=== PATIENT | female | born 1960 | race Caucasian/White ===

== ENCOUNTER 2020-04-11 10:45 | Outpatient (REF) | payer BC, SELFPAY ==
[2020-04-11 11:21] LABS: MANUAL DIFF FLAG NO
[2020-04-11 11:26] LABS: Basophils Percent Auto 0.5 % (0-2); Eosinophils Absolute Auto 0.1 X10*3/uL (0.0-0.4); Eosinophils Percent Auto 2.5 % (0-4); Hematocrit 39.7 % (37-47); Hemoglobin 13.2 g/dl (12.0-16.0); Imm Gran Abs Auto 0.02 X10*3/uL (0.00-0.03); Imm Gran Pct Auto 0.4 % (0.0-0.4); Lymphocytes Absolute Auto 1.6 X10*3/uL (1.2-4.9); Lymphocytes Percent Auto 29.2 % (20-40); Mean Corpuscular HGB Conc 33.2 g/dl (31.0-35.0); Mean Corpuscular Hemoglobin 26.2 pg (27.0-33.0); Mean Corpuscular Volume 78.9 fL (80-98); Mean Platelet Volume 9.6 fL (9.4-12.3); Monocytes Absolute Auto 0.2 X10*3/uL (0.1-1.2); Monocytes Percent Auto 4.2 % (2-11); Neutrophils Absolute Auto 3.5 X10*3/uL (2.0-8.3); Neutrophils Percent Auto 63.2 % (45-73); Platelet Count 270 X10*3/uL (160-400); Red Blood Count 5.03 X10*6/uL (4.20-5.50); Red Cell Distribution Width 13.3 % (11.0-16.0); White Blood Count 5.5 X10*3/uL (4.8-10.8)
[2020-04-11 11:36] LABS: Prothrombin Time 11.7 SEC (10.8-13.0)
[2020-04-11 11:57] LABS: Alanine Aminotransferase 82 U/L (0-31); Albumin Level 4.3 g/dL (3.5-5.0); Alkaline Phosphatase 202 U/L (39-117); Aspartate Amino Transferase 39 U/L (5-31); Bilirubin Direct 0.2 mg/dL (0.0-0.5); Bilirubin Total 0.6 mg/dL (0.0-1.0); Gamma Glutamyl Transpeptidase 302 U/L (7-33); Total Protein 6.8 g/dL (6.5-8.0)
[2020-04-14 13:08] LABS: Mitochondrial Antibodies NEGATIVE (NEGATIVE)
[2020-04-15 12:52] LABS: Liver Kidney Microsomal Ab <=20.0 U (<=20.0)
[2020-04-15 23:37] LABS: FIB-ALT 83 U/L (6-29); FIB-Alpha-2-Macroglobulin 176 mg/dL (106-279); FIB-Apolipoprotein A1 214 mg/dL (101-198); FIB-GGT 270 U/L (3-65); FIB-Haptoglobin 140 mg/dL (43-212); FIB-Total Bilirubin 0.5 mg/dL (0.2-1.2); Liver Fibrosis Score 0.21; Liver Fibrosis Stage F0; Nec Inflam Act Grade A1-A2; Nec Inflam Act Score 0.45
[2020-04-16 01:08] LABS: Alk.Phos Iso. Macrohepatic 21 % (<=0); Alk.Phos Isoenzymes Bone 21 % (28-66); Alk.Phos Isoenzymes Intest 0 % (1-24); Alk.Phos Isoenzymes Liver 58 % (25-69); Alk.Phos Isoenzymes Placental 0 % (<=0); Alk.Phos Isoenzymes Total 189 U/L (37-153)
== END 2020-04-11 10:46 | disposition home or self-care (01) ==
LOC: HO.LAB 10:45
PROVIDERS: PCP Nurse Practitioner Adult Health; Visit Provider Internal Medicine
DX: R74.8 Abnormal levels of other serum enzymes (principal); K76.0 Fatty (change of) liver, not elsewhere classified
CPT/HCPCS: 36415; 80076; 81596; 82977; 84080; 85025; 85610; 86255; 86256; 86376

== ENCOUNTER 2020-04-15 09:54 | Outpatient (REF) | payer BC, SELFPAY ==
--- NOTE | ~2020-04-15 | US_ITS ---
EXAMINATION: US COMPLETE ABDOMEN WITH LIVER ELASTOGRAPHY CLINICAL INFORMATION: Elevated liver function tests COMPARISON: Previous abdominal ultrasound August 2017 TECHNIQUE: Real-time imaging of the abdominal viscera. Noninvasive ultrasound liver fibrosis assessment is performed using Edgar ElastPQ point quantification shear wave elastography (pSWE) with a C5-2 MHz transducer. Multiple elastography samples are obtained. FINDINGS: PANCREAS: The visualized pancreatic head and body are normal in appearance. The remainder of the pancreas is obscured from visualization by the overlying bowel gas. ABDOMINAL AORTA: The proximal, middle, and distal aortic segments are normal in caliber. INFERIOR VENA CAVA: Visualized portions are normal. LIVER: Liver echotexture is increased. There is a hypoechoic area adjacent to the gallbladder, characteristic location of focal fatty sparing. The liver is normal in contour. The liver is normal in size.. No focal lesion or intrahepatic biliary duct dilatation. The right lobe measures 15 cm in length. The left lobe measures 11 cm in length. Portal flow is normal/hepatopedal Shear wave liver elastography median stiffness is 1.2 m/s (reference: normal median stiffness is 1.3 m/s or less). IQR/median stiffness to assess sampling precision is 0.3 (reference: good quality data set is IQR/median stiffness of 0.15 or less). GALLBLADDER: Surgically removed COMMON BILE DUCT: Normal in caliber measuring 0.6 cm in diameter. RIGHT KIDNEY: Normal. No hydronephrosis. No renal calculi or focal parenchymal lesions. The kidney measures 11 cm in maximum dimension. LEFT KIDNEY: Normal. No hydronephrosis. No renal calculi or focal parenchymal lesions. The kidney measures 10 cm in maximum dimension. SPLEEN: Normal. The spleen measures 10 cm in maximum dimension. FREE FLUID: None. US/US abdomen comp w elastography IMPRESSION: 1. Impression: Echogenic liver probably representing fatty infiltration. Limited visualization of the tail of the pancreas. 2. Liver elastography: Slightly limited due to sampling error but normal. No evidence of compensated advanced chronic liver disease. REFERENCE: Society of Radiologists in Ultrasound Liver Stiffness Thresholds (2020): LIVER STIFFNESS THRESHOLDS: *Liver Stiffness equal or less than 1.3 m/s: High probability of being normal. *Liver Stiffness less than 1.7 m/s: In the absence of other known clinical signs, rules out compensated advanced chronic liver disease. *Liver Stiffness 1.7-2.1 m/s: Suggestive of compensated advanced chronic liver disease but need further test for confirmation. *Liver Stiffness over 2.1 m/s: Rules in compensated advanced chronic liver disease. *Liver Stiffness over 2.4 m/s: Suggestive of clinically significant portal hypertension. QUALITY OF DATA SET: *IQR/Median value equal or less than 0.15 implies a quality data set. *IQR/Median value over 0.15 implies a poor quality data set. SIGNIFICANT CHANGE FROM PRIOR EXAM: Significant change if liver stiffness measurement is 10% or greater from prior exam. OTHER CONSIDERATIONS: The stage of liver fibrosis may be overestimated in the setting of acute hepatitis, liver inflammation, elevated liver function tests, hepatic vascular congestion, obstructive cholestasis, non-fasting state, and infiltrative diseases such as amyloidosis and lymphoma. In some patients with NAFLD, the liver stiffness thresholds for compensated advanced chronic liver disease may be lower. In causes other than viral hepatitis and NAFLD, liver stiffness thresholds are not well established.
== END 2020-04-15 09:55 | disposition home or self-care (01) ==
LOC: HO.US 09:54
PROVIDERS: Visit Provider Internal Medicine
DX: K76.0 Fatty (change of) liver, not elsewhere classified (principal); R74.8 Abnormal levels of other serum enzymes
CPT/HCPCS: 76705; 76981

== ENCOUNTER 2023-04-03 10:21 | Outpatient (REF) | payer OTHER, SELFPAY ==
--- NOTE | ~2023-04-03 | US_ITS ---
EXAMINATION: US COMPLETE ABDOMEN WITH LIVER ELASTOGRAPHY CLINICAL INFORMATION: Elevated liver enzymes. COMPARISON: Abdominal ultrasound dated 04/15/2020. TECHNIQUE: Real-time imaging of the abdominal viscera. Noninvasive ultrasound liver fibrosis assessment is performed using Edgar ElastPQ point quantification shear wave elastography (2D-SWE) with a C5-2 MHz transducer. Multiple elastography samples are obtained. FINDINGS: PANCREAS: Normal. The visualized pancreatic head and body are normal in appearance. The remainder of the pancreas is obscured from visualization by the overlying bowel gas. ABDOMINAL AORTA: The proximal, middle, and distal aortic segments are normal in caliber. INFERIOR VENA CAVA: Visualized portions are normal. LIVER: Normal. The liver demonstrates normal size, contour and echogenicity. No focal lesion or intrahepatic biliary duct dilatation. The right lobe measures 15.8 cm in length. The left lobe measures 11.0 cm in length. Portal flow is towards the liver (hepatopetal). Shear wave liver elastography median stiffness is 1.60 m/s (reference: normal median stiffness is 1.3 m/s or less). IQR/median stiffness to assess sampling precision is 0.06 (reference: good quality data set is IQR/median stiffness of 0.15 or less). GALLBLADDER: Surgically absent. COMMON BILE DUCT: Normal in caliber measuring 0.5 cm in diameter. RIGHT KIDNEY: Normal. No hydronephrosis. No renal calculi or focal parenchymal lesions. The kidney measures 10.2 cm in maximum dimension. LEFT KIDNEY: Normal. No hydronephrosis. No renal calculi or focal parenchymal lesions. The kidney measures 10.9 cm in maximum dimension. SPLEEN: Normal. The spleen measures 9.5 cm in maximum dimension. FREE FLUID: None. US/US abdomen comp w elastography IMPRESSION: 1. There is generalized increase in hepatic echotexture, consistent with fatty infiltration or hepatocellular disease. Please correlate clinically. No focal hepatic mass or intrahepatic biliary dilatation is seen. 2. Liver elastography: Measurements are suggestive of compensated advanced chronic liver disease but need further test for confirmation. When compared with prior exam, there is a statistically significant increase in liver stiffness (increase at least 10%). 3. The gallbladder is surgically absent. REFERENCE: Society of Radiologists in Ultrasound Liver Stiffness Thresholds (2020): LIVER STIFFNESS THRESHOLDS: *Liver Stiffness equal or less than 1.3 m/s: High probability of being normal. *Liver Stiffness less than 1.7 m/s: In the absence of other known clinical signs, rules out compensated advanced chronic liver disease. *Liver Stiffness 1.7-2.1 m/s: Suggestive of compensated advanced chronic liver disease but need further test for confirmation. *Liver Stiffness over 2.1 m/s: Rules in compensated advanced chronic liver disease. *Liver Stiffness over 2.4 m/s: Suggestive of clinically significant portal hypertension. QUALITY OF DATA SET: *IQR/Median value equal or less than 0.15 implies a quality data set. *IQR/Median value over 0.15 implies a poor quality data set. SIGNIFICANT CHANGE FROM PRIOR EXAM: Significant change if liver stiffness measurement is 10% or greater from prior exam. OTHER CONSIDERATIONS: The stage of liver fibrosis may be overestimated in the setting of acute hepatitis, liver inflammation, elevated liver function tests, hepatic vascular congestion, obstructive cholestasis, non-fasting state, and infiltrative diseases such as amyloidosis and lymphoma. In some patients with NAFLD, the liver stiffness thresholds for compensated advanced chronic liver disease may be lower. In causes other than viral hepatitis and NAFLD, liver stiffness thresholds are not well established.
== END 2023-04-03 10:22 | disposition home or self-care (01) ==
LOC: HO.US 10:21
PROVIDERS: PCP Nurse Practitioner Adult Health; Visit Provider Internal Medicine
DX: R74.8 Abnormal levels of other serum enzymes (principal); K76.0 Fatty (change of) liver, not elsewhere classified
CPT/HCPCS: 76700; 76981

== ENCOUNTER 2023-04-26 08:16 | Day surgery (SDC) | payer MEDICARE, SELFPAY ==
--- NOTE | 2023-04-25 12:36 | HO.ANESPROP2 ---
Documented by User: Ana Christensen NP 04/25/23 12:37 HPI - Anesthesia Eval Consult details Narrative: 62yo F for [facility] End[facility] Past Medical History Medical History (Updated 04/25/23 @ 11:32 by Daisha Rea, TIERNEY) Periorbital dermatitis Diabetes GERD (gastroesophageal reflux disease) Anxiety Elevated cholesterol Asthma Surgical History Surgical History (Updated 04/25/23 @ 11:25 by Daisha Rea, TIERNEY) Hx of section History of lumpectomy of left breast Hx of left knee surgery Hx of cholecystectomy Hx of appendectomy History of ERCP H/O colonoscopy History of esophagogastroduodenoscopy (EGD) Social History Social History Patient Tobacco Use Status: Never used Tobacco Use of substances other than those prescribed or required for medical reasons: No Are you DNR?: No Advance Directives: No Advance Directives Information Provided: Yes Meds Allergies Allergy/AdvReac Type Severity Reaction Status Date / Time No Known Allergies Allergy Unverified 04/23/23 13:55 Home Medications Medication Instructions Recorded Confirmed Last Taken Type albuterol sulfate 90 mcg/actuation 2 puff inhalation Q6H PRN wheezing 04/25/23 04/25/23 Unknown History aerosol inhaler atorvastatin 40 mg tablet 40 mg PO DAILY 04/25/23 04/25/23 Unknown History budesonide-formoterol HFA 160 2 puff inhalation BID 04/25/23 04/25/23 Unknown History mcg-4.5 mcg/actuation aerosol inhaler (Symbicort) diclofenac sodium 50 mg 50 mg PO BID 04/25/23 04/25/23 Unknown History tablet,delayed release dicyclomine 10 mg capsule 10 mg PO QID PRN Abdominal Pain 04/25/23 04/25/23 Unknown History esomeprazole magnesium 20 mg 40 mg PO DAILY 04/25/23 04/25/23 Unknown History capsule,delayed release (Nexium 24HR) lactase 3,000 unit tablet (Lactaid) 3,000 unit PO QID PRN with dairy 04/25/23 04/25/23 Unknown History lisinopril 5 mg tablet 5 mg PO DAILY 04/25/23 04/25/23 Unknown History lorazepam 0.5 mg tablet 0.5 mg PO DAILY PRN anxiety 04/25/23 04/25/23 Unknown History mometasone 50 mcg/actuation nasal intranasal 04/25/23 Unknown History spray montelukast 10 mg tablet 10 mg PO BEDTIME 04/25/23 04/25/23 Unknown History paroxetine HCl 30 mg tablet 30 mg PO DAILY 04/25/23 04/25/23 Unknown History Assessment and Plan Assessment Anesthesia Assessment: Chart Reviewed Documented by User: Diogo Shepherd MD 04/26/23 09:54 [facility] Past Medical History Medical History (Updated 04/25/23 @ 11:32 by Daisha Rea RN) Periorbital dermatitis Diabetes GERD (gastroesophageal reflux disease) Anxiety Elevated cholesterol Asthma Family History Family history of problems with anesthesia: No Surgical History Surgical History (Updated 04/25/23 @ 11:25 by Daisha Rea RN) Hx of section History of lumpectomy of left breast Hx of left knee surgery Hx of cholecystectomy Hx of appendectomy History of ERCP H/O colonoscopy History of esophagogastroduodenoscopy (EGD) History of Problems with Anesthesia: No Social History Social History Patient Tobacco Use Status: Never used Tobacco Use of substances other than those prescribed or required for medical reasons: No Are you DNR?: No Advance Directives: No Advance Directives Information Provided: Yes Meds Allergies Allergy/AdvReac Type Severity Reaction Status Date / Time No Known Allergies Allergy Unverified 04/23/23 13:55 Home Medications Medication Instructions Recorded Confirmed Last Taken Type albuterol sulfate 90 mcg/actuation 2 puff inhalation Q6H PRN wheezing 04/25/23 04/25/23 Unknown History aerosol inhaler atorvastatin 40 mg tablet 40 mg PO DAILY 04/25/23 04/25/23 Unknown History budesonide-formoterol HFA 160 2 puff inhalation BID 04/25/23 04/25/23 Unknown History mcg-4.5 mcg/actuation aerosol inhaler (Symbicort) diclofenac sodium 50 mg 50 mg PO BID 04/25/23 04/25/23 Unknown History tablet,delayed release dicyclomine 10 mg capsule 10 mg PO QID PRN Abdominal Pain 04/25/23 04/25/23 Unknown History esomeprazole magnesium 20 mg 40 mg PO DAILY 04/25/23 04/25/23 Unknown History capsule,delayed release (Nexium 24HR) lactase 3,000 unit tablet (Lactaid) 3,000 unit PO QID PRN with dairy 04/25/23 04/25/23 Unknown History lisinopril 5 mg tablet 5 mg PO DAILY 04/25/23 04/25/23 Unknown History lorazepam 0.5 mg tablet 0.5 mg PO DAILY PRN anxiety 04/25/23 04/25/23 Unknown History mometasone 50 mcg/actuation nasal intranasal 04/25/23 Unknown History spray montelukast 10 mg tablet 10 mg PO BEDTIME 04/25/23 04/25/23 Unknown History paroxetine HCl 30 mg tablet 30 mg PO DAILY 04/25/23 04/25/23 Unknown History Exam Airway Mallampati Class: II TM Dist: <=3cm Neck ROM: Full Loose/Missing/Broken Teeth: No Heart: rrr Lungs: cta b/l Assessment and Plan Final Anesthetic Review Family History of Problems with Anesthesia: No History of Problems with Anesthesia: No NPO: Yes ASA Class: III Final Preanesthetic Review: No Changes in Pt Med Stat, Meds/Allgs Chart Reviewed, Consent Obtained/Reviewed and Anes Risks/Benef Reviewed Patient Risk: Intermediate Procedure Risk: Intermediate Anesthetic Plan Anesthetic Plan: MAC: Disposition: Standard PACU
[2023-04-26 09:20] VITALS: BMI 28.5
[2023-04-26 09:28] VITALS: BP 139/86; PULSE 104; RESP 18; TEMP 36.6; O2SAT 95
[2023-04-26] MEDS: Lactated Ringers 1,000 ML 100 ML IVCONT (09:37)
[2023-04-26 11:01] VITALS: BP 126/83; PULSE 91; RESP 16; TEMP 36.1; O2SAT 96
--- NOTE | 2023-04-26 11:02 | PM.OP ---
Brief Operative Note Date of Service: 04/26/23 Pre-op diagnosis: Abdominal pain, Screening Post-op diagnosis: other (Hiatal hernia, Gastritis, Colon polyps) Procedure: EGD with biopsies, Colonoscopy to the cecum with hot snare polypectomy x 1 in AC, and bx/removal of rectal polyps Surgeon: Richie Cho MD Anesthesia: MAC Was an Plywood Patcher used for this Procedure?: No Estimated blood loss (mL): 2.0 Pathology: other (A. Gastric antrum B. Gastric polyps C. EG Junction at 37cm D. Distal ascending colon polyp E. Rectal polyps) Condition: stable Disposition: PACU
[2023-04-26 11:15] VITALS: BP 126/83; PULSE 83; RESP 16; TEMP 36.2; O2SAT 96
[2023-04-26 11:26] VITALS: BP 112/93; PULSE 78; RESP 16; TEMP 36.2; O2SAT 98
--- NOTE | 2023-04-27 02:49 | OP_ITS ---
DATE OF SERVICE: 04/26/2023 SURGEON: Richie Cho MD INDICATIONS: The patient presents for evaluation of abdominal pain, personal history of tubular adenoma of the colon, and colorectal cancer screening. Full consent has been obtained from her for this, including risks of bleeding and perforation. PREOPERATIVE DIAGNOSIS: Abdominal pain, colorectal cancer screening. POSTOPERATIVE DIAGNOSIS: PROCEDURE PERFORMED: Esophagogastroduodenoscopy with biopsies and colonoscopy to the cecum with hot snare polypectomy and biopsy and removal of rectal polyps. ESTIMATED BLOOD LOSS: COMPLICATIONS: ANESTHESIA: Monitored anesthesia care. ASSISTANTS: SPECIMENS: POSTOPERATIVE DIAGNOSES: Abdominal pain, colorectal cancer screening, colon polyps, hiatal hernia, gastritis, gastric polyps. DESCRIPTION OF PROCEDURE: The patient was placed in the left lateral decubitus position. The Olympus video gastroscope was passed in the posterior oropharynx and upper esophagus under direct vision. The scope was passed slowly to the distal esophagus. The gastroesophageal junction appeared at 37 cm. There was some very slight irregularity consistent with reflux but no evidence of any inflammation, mass, nor definitive Bueno's mucosa. The scope entered the stomach. There was a small hiatal hernia. The scope was advanced to the pylorus, and the duodenum was cannulated to the descending portion. The duodenum including the bulb appeared normal without mass or ulceration. The scope was withdrawn back to the stomach. The gastric antrum and body had some mild areas of erythema and edema but no erosions or ulceration. There was good peristalsis. Biopsies were obtained. The scope was retroflexed visualizing the proximal stomach carefully, which appeared normal, without any mass or ulceration, other than multiple hyperplastic appearing gastric polyps. Two of these were biopsied. The scope was withdrawn back in the esophagus. Biopsies were obtained at the EG junction at 37 cm. Proximal to this, the esophageal mucosa appeared normal. The scope was withdrawn from the patient. She was turned around for the colonoscopy. The digital rectal exam revealed no abnormalities. The Olympus video pediatric colonoscope was entered into the rectum and advanced easily to the cecum. Once in the cecum, I did identify normal-appearing cecal pouch with appendiceal orifice and a normal-appearing ileocecal valve. There was transillumination of light deep in the right lower quadrant. The entire cecum and ileocecal valve appeared normal. The scope was slowly withdrawn assessing all mucosal surfaces carefully. Preparation was excellent. In the distal ascending colon between folds, was an approximately 10 mm grossly adenomatous polyp, which was removed by hot snare polypectomy and recovered by suction. The polypectomy site appeared clean, without any sign of residual polyp nor bleeding. In the rectum were two 3 mm probable hyperplastic polyps, which were biopsied and removed completely with cold biopsy forceps. I did not visualize any other polyps, colitis, or angiodysplasia. There was a mild amount of sigmoid diverticulosis. In the rectum, scope was retroflexed visualizing internal hemorrhoids, but no other pathology. The rectal mucosa appeared normal. The scope was straightened and withdrawn from the patient. She tolerated the procedure well and was returned to the recovery area in stable condition. IMPRESSION: 1. Colon polyps. 2. Gastric polyps. 3. Small hiatal hernia. 4. Mild gastritis. PLAN: The results of the biopsies will be checked. She was advised not to use any aspirin and NSAIDs for 1 week. She was advised to continue her PPI. I would recommend a repeat colonoscopy in 5 years. She was advised to see me again by the Fall for followup of her fatty liver and elevated LFTs. The recent studies showed good liver function and stable LFTs except for an alkaline phosphatase of just over 300. We did review that at some point she may need a liver biopsy and we could decide that when I see her in the Fall for a followup visit. We did review that diet and weight loss would be the best way to treat this for the time being. This has been discussed with the patient and her in detail today. She was given written instructions as well. MD RL Flood/JOSE / [id number]
== END 2023-04-26 11:51 | disposition home or self-care (01) ==
PROVIDERS: PCP Nurse Practitioner Adult Health; Visit Provider Internal Medicine
PROC: (CPT 45385; principal; 2023-04-26 09:30)
DX: Z12.11 Encounter for screening for malignant neoplasm of colon (principal); Z86.010 Personal history of colon polyps; D12.2 Benign neoplasm of ascending colon; K62.1 Rectal polyp; K57.30 Diverticulosis of large intestine without perforation or abscess without bleeding; K64.8 Other hemorrhoids; R10.13 Epigastric pain; K21.9 Gastro-esophageal reflux disease without esophagitis; K29.50 Unspecified chronic gastritis without bleeding; K31.7 Polyp of stomach and duodenum; K44.9 Diaphragmatic hernia without obstruction or gangrene; K76.0 Fatty (change of) liver, not elsewhere classified; E11.9 Type 2 diabetes mellitus without complications; E78.00 Pure hypercholesterolemia, unspecified; R74.8 Abnormal levels of other serum enzymes; J45.909 Unspecified asthma, uncomplicated; Z79.51 Long term (current) use of inhaled steroids; Z79.899 Other long term (current) drug therapy
CPT/HCPCS: 45385; 45380; 43239; 88305; 88313; 88342; J2704